=== PATIENT | female | born 1960 | race Caucasian/White ===

== ENCOUNTER 2024-01-23 16:33 | Emergency (ER) | payer OTHER ==
[~2024-01-23] VITALS: Ht 165.1 cm; Wt 131.8 kg
[2024-01-23] MEDS: MECLIZINE HCL 25 MG TAB PO ONE (17:26)
[2024-01-23 18:04] LABS: Urine Bacteria None Seen /hpf (None Seen)
[2024-01-23 18:40] LABS: Urine Blood Negative /uL (Negative); Urine Clarity Clear (Clear); Urine Color Colorless (Yellow); Urine Protein, UAD Negative (Negative); Urine Specific Gravity 1.009 (1.001-1.035); Urine Urobilinogen Normal (Negative); Urine WBC <1 /hpf (0 - 5)
[2024-01-23 20:20] LABS: Basophils # (auto) 0.1 10 ^3/uL (0-0.2); Basophils % (auto) 0.7 % (0.0-2.0); Eosinophils # (auto) 0.1 10 ^3/uL (0-0.8); Eosinophils % (auto) 0.5 % (0.0-7.0); Hematocrit 43.4 % (36.0-46.0); Hemoglobin 14.9 g/dL (12.2-16.2); Lymphocytes # (auto) 1.7 10 ^3/uL (0.4-5.4); Lymphocytes % (auto) 17.7 % (10.0-50.0); Mean Corpuscular Hemoglobin 31.8 pg (28.0-32.0); Mean Corpuscular Hgb Conc. 34.5 g/dL (32.0-36.0); Mean Corpuscular Volume 92.2 fL (80.0-100.0); Monocytes # (auto) 0.7 10 ^3/uL (0-1.3); Monocytes % (auto) 7.1 % (0.0-12.0); Neutrophils # (auto) 7.1 10 ^3/uL (1.6-8.6); Nucleated Red Blood Cells % 0.2 %; Platelet Count (auto) 344 10^3/uL (140-450); Red Cell Distribution Width 13.6 % (11.8-14.3); White Blood Cell 9.6 10^3/uL (4.4-10.8)
[2024-01-23 20:25] LABS: Chloride 107 mmol/L (98-107); Potassium 4.1 mmol/L (3.5-5.1); Sodium 139 mmol/L (136-145)
[2024-01-23 20:26] LABS: Anion Gap 4 (5-15); Carbon Dioxide 28 mmol/L (20-31)
[2024-01-23 20:27] LABS: Calcium 9.6 mg/dL (8.7-10.4)
[2024-01-23 20:32] LABS: BUN/Creatinine Ratio 10.9 (10.0-20.0); Blood Urea Nitrogen 7 mg/dL (9-23); Glucose 115 mg/dL (74-106)
[2024-01-23 21:43] VITALS: BP 159/78; PULSE 71; RESP 18; TEMP 98.4; O2SAT 97
[2024-01-23] MEDS ORDERED: MECL25CH20 PO (23:12)
== END 2024-01-23 23:28 | disposition home or self-care (01) ==
LOC: EDBD 16:33 → ER 16:33
DX: G45.9 Transient cerebral ischemic attack, unspecified (principal); I10 Essential (primary) hypertension
CPT/HCPCS: 36415; 70450; 80048; 81001; 85025; 93005; 99284; J8597